=== PATIENT | female | born 2005 | race Caucasian/White ===

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

== ENCOUNTER 2024-08-25 11:11 | Day surgery (SDC) | payer OTHER ==
[~2024-08-25] VITALS: Ht 172.7 cm; Wt 81.6 kg
[~2024-08-25 11:11] MED LIST changes: +CEPHALEXIN500 MG PO; +ESTARYLLA1 TAB PO; +IBUPROFEN600 MG PO
[2024-08-25] MEDS ORDERED: FAMOTIDINE 10MG/ML 2ML SDV IV ONE (11:34)
[2024-08-25] MEDS ORDERED: ceFAZolin Sodium 2 GM/VIAL SDV ONE (11:34)
[2024-08-25] MEDS ORDERED: LACTATED RINGER'S 1,000 ML IV ONE (11:35)
[2024-08-25] MEDS ORDERED: SODIUM CHLORIDE 0.9% 0 ML IV ONE (11:35)
[2024-08-25] MEDS ORDERED: LIDOcaine HCl 1% (Local Anesth.) 20 ML VIAL ONE (12:38)
[2024-08-25] MEDS ORDERED: STERILE WATER FOR IRRIGATION 500 ML BTL IR ONE (12:40)
[2024-08-25] MEDS ORDERED: PERCOCET 5/325M1 TAB PO (14:40)
[2024-08-25] MEDS ORDERED: ONDANSETRON HCl 4 MG/2 ML SDV ONE (15:10)
[2024-08-25] MEDS ORDERED: HYDROmorphone HCL 2 MG/AMP ONE (15:10)
[2024-08-25 16:20] VITALS: BP 134/76
[2024-08-25] MEDS ORDERED: DiphenhydrAMINE HCL 50 MG/ML SDV IV ONE (16:26)
[2024-08-25] MEDS ORDERED: GLYCOPYRROLATE 0.2 MG/ML IV ONE (16:26)
[2024-08-25] MEDS ORDERED: SUGAMMADEX SODIUM 200 MG/2 ML SDV IV ONE (16:26)
[2024-08-25] MEDS ORDERED: MIDAZOLAM HCL 2 MG/2 ML VIAL IV ONE (16:26)
[2024-08-25] MEDS ORDERED: KETOROLAC TROMETHAMINE 30 MG/ML SDV IV ONE (16:26)
[2024-08-25] MEDS ORDERED: ONDANSETRON HCl 4 MG/2 ML SDV IV ONE (16:26)
[2024-08-25] MEDS ORDERED: ROCURONIUM BROMIDE 10 MG/ML 5ML VIAL IV ONE (16:26)
[2024-08-25] MEDS ORDERED: MORPHINE SULFATE 4 MG/ML VIAL IV ONE (16:26)
[2024-08-25] MEDS ORDERED: LACTATED RINGER'S 1,000 ML BAG IV ONE (16:26)
[2024-08-25] MEDS ORDERED: PROPOFOL 200 MG/20 ML VIAL IV ONE (16:26)
[2024-08-25] MEDS ORDERED: LIDOCAINE HCL 2% 2ML SDV IV ONE (16:26)
[2024-08-25] MEDS ORDERED: ACETAMINOPHEN 1,000 MG/100 ML VIAL IV ONE (16:26)
== END 2024-08-25 16:38 | disposition home or self-care (01) | DRG 419 ==
LOC: ORM 11:11
PROVIDERS: ATTEND Surgery
PROC: 0FT44ZZ Resection of Gallbladder, Percutaneous Endoscopic Approach (ICD-10-PCS; principal; 2024-08-25)
DX: K80.10 Calculus of gallbladder with chronic cholecystitis without obstruction (principal)
CPT/HCPCS: J0131; J0690; J1100; J1171; J1200; J1596; J2405